=== PATIENT | female | born 1960 | race Caucasian/White ===

== ENCOUNTER → 2016-11-06 | Outpatient (CLI) | payer BC ==
--- NOTE | 2016-11-07 07:10 | MM ---
Reason for exam: follow-up at short interval from prior study. Last mammogram was performed 10 months ago. History: Patient is postmenopausal, has history of breast cancer at age 55, and has history of high-risk lesion on a previous biopsy at age 55. Family history of premenopausal breast cancer in maternal aunt at age 40 and breast cancer in maternal aunt at age 55. High risk MG pre op needle loc RT of the right breast, November 02, 2015. Malignant MG stereo VAD BX RT of the right breast, October 26, 2015. Physical Findings: Nurse did not find any significant physical abnormalities on exam. MG 3D Diag Mammo W/Cad AYAD Bilateral CC and MLO view(s) were taken. Prior study comparison: December 29, 2015, right breast MG diagnostic mammo RT w CAD. October 08, 2015, right breast MG 3d work up w/cad RT. October 04, 2015, bilateral MG screening mammo w CAD. August 25, 2014, bilateral MG screening mammo w CAD. March 19, 2013, bilateral digital screening mammo w/CAD. The breast tissue is heterogeneously dense. This may lower the sensitivity of mammography. Post surgical and post therapy changes in the right breast. These changes can be reassessed in 6 months. These results were verbally communicated with the patient and result sheet given to the patient on 11/06/16. ASSESSMENT: Probably benign, BI-RAD 3 RECOMMENDATION: Follow-up diagnostic mammogram of the right breast in 6 months.
== END | disposition home or self-care (01) ==
LOC: RADMAMWWP 13:38
PROVIDERS: ATTEND Radiology Diagnostic Radiology
DX: C50.911 Malignant neoplasm of unspecified site of right female breast (principal)
CPT/HCPCS: G0204; G0279

== ENCOUNTER → 2017-05-11 | Outpatient (CLI) | payer BC ==
--- NOTE | 2017-05-11 11:28 | MM ---
Reason for exam: follow-up at short interval from prior study. Last mammogram was performed 6 months ago. History: Patient is postmenopausal, has history of breast cancer at age 55, and has history of high-risk lesion on a previous biopsy at age 55. Family history of premenopausal breast cancer in maternal aunt at age 40 and breast cancer in maternal aunt at age 55. High risk MG pre op needle loc RT of the right breast, November 02, 2015. Malignant MG stereo VAD BX RT of the right breast, October 26, 2015. Physical Findings: Nurse did not find any significant physical abnormalities on exam. MG 3D Diag Mammo W/Cad RT CC and MLO view(s) were taken of the right breast. Prior study comparison: November 06, 2016, bilateral MG 3d diag mammo w/cad AYAD. December 29, 2015, right breast MG diagnostic mammo RT w CAD. The breast tissue is heterogeneously dense. This may lower the sensitivity of mammography. No suspicious abnormality. Post therapy changes in the right upper central breast. These results were verbally communicated with the patient and result sheet given to the patient on 05/11/17. ASSESSMENT: Benign, BI-RAD 2 RECOMMENDATION: Follow-up diagnostic mammogram of both breasts in 6 months. Back on schedule for October 2017.
== END | disposition home or self-care (01) ==
LOC: RADMAMWWP 10:21
PROVIDERS: ATTEND Radiology Diagnostic Radiology
DX: C50.911 Malignant neoplasm of unspecified site of right female breast (principal)
CPT/HCPCS: G0206; G0279

== ENCOUNTER → 2017-11-14 | Outpatient (CLI) | payer BC ==
--- NOTE | 2017-11-15 11:02 | MM ---
Reason for exam: follow-up at short interval from prior study. Last mammogram was performed 6 months ago. History: Patient is postmenopausal, has history of breast cancer at age 55, and has history of high-risk lesion on a previous biopsy at age 55. Family history of premenopausal breast cancer in maternal aunt at age 40 and breast cancer in maternal aunt at age 55. High risk MG pre op needle loc RT of the right breast, November 02, 2015. Malignant MG stereo VAD BX RT of the right breast, October 26, 2015. Radiation therapy of the right breast, 2015. Taking antineoplastic for 2 years beginning at age 55. Physical Findings: Nurse did not find any significant physical abnormalities on exam. MG 3D Diag Mammo W/Cad AYAD Bilateral CC and MLO view(s) were taken. Prior study comparison: May 11, 2017, right breast MG 3d diag mammo w/cad RT. November 06, 2016, bilateral MG 3d diag mammo w/cad AYAD. The breast tissue is heterogeneously dense. This may lower the sensitivity of mammography. Post surgical changes in the right breast. No significant new findings when compared with previous films. These results were verbally communicated with the patient and result sheet given to the patient on 11/14/17. ASSESSMENT: Benign, BI-RAD 2 RECOMMENDATION: Routine screening mammogram of both breasts in 1 year.
== END | disposition home or self-care (01) ==
LOC: RADMAMWWP 13:33
PROVIDERS: ATTEND Radiology Diagnostic Radiology
DX: C50.911 Malignant neoplasm of unspecified site of right female breast (principal)
CPT/HCPCS: 77066; G0279

== ENCOUNTER 2018-02-06 12:38 | Emergency (ER) | payer BC ==
[2018-02-06 12:50] VITALS: RESP 18; TEMP 97.8
--- NOTE | 2018-02-06 13:11 | ED ---
General Adult HPI - General Chief complaint: Extremity Problem,Nontraumatic Stated complaint: Toe Numbness Time Seen by Provider: 02/06/18 12:50 Source: patient, RN notes reviewed Mode of arrival: ambulatory Limitations: no limitations - History of Present Illness Initial comments: 57-year-old female presents to the emergency department for a chief complaint of third and fourth right toe numbness 2 days. Patient states it started yesterday and also extends to the bottom of the distal right foot. Patient denies any injuries. Patient denies any peripheral arterial diseases. No diabetes or diabetic neuropathy. Patient denies any pain in the calf. Patient does admit to sciatic pain for years. Patient denies pain at this times states it is on and off. Patient has no other complaints at this time including shortness of breath, chest pain, abdominal pain, nausea or vomiting, headache, or visual changes. - Related Data Home Medications Medication Instructions Recorded Confirmed Atorvastatin [Lipitor] 10 mg PO HS 11/01/15 11/02/15 Escitalopram Oxalate 10 mg PO HS 11/01/15 11/02/15 Esomeprazole Magnesium [NexIUM] 40 mg PO HS 11/01/15 11/02/15 Gabapentin [Neurontin] 300 mg PO [facility] 11/01/15 11/02/15 Gabapentin [Neurontin] 600 mg PO HS 11/01/15 11/02/15 Levothyroxine Sodium 75 mcg PO QAM 11/01/15 11/02/15 Metoprolol Tartrate 50 mg PO HS 11/01/15 11/02/15 clonazePAM [Clonazepam] 0.5 mg PO HS 11/01/15 11/02/15 Previous Rx's Medication Instructions Recorded predniSONE 50 mg PO DAILY #5 tablet 02/06/18 Allergies Allergy/AdvReac Type Severity Reaction Status Date / Time Iodinated Contrast- Oral and Allergy Dyspnea Verified 02/06/18 12:47 IV Dye [Iodinated Contrast Media - IV Dye] Penicillins Allergy Dyspnea Verified 02/06/18 12:47 Sulfa (Sulfonamide Allergy REDDNESS, Verified 02/06/18 12:47 Antibiotics) CHEEKS, HANDS Review of Systems ROS Statement: Those systems with pertinent positive or pertinent negative responses have been documented in the HPI. ROS Other: All systems not noted in ROS Statement are negative. Past Medical History Past Medical History: GERD/Reflux, Hyperlipidemia, Hypertension, Sleep Apnea/ CPAP/BIPAP, Thyroid Disorder History of Any Multi-Drug Resistant Organisms: None Reported Past Surgical History: Appendectomy, Hysterectomy Additional Past Surgical History / Comment(s): AYAD CATARACT SX Past Anesthesia/Blood Transfusion Reactions: No Reported Reaction Past Psychological History: Depression Smoking Status: Never smoker Past Alcohol Use History: Rare Past Drug Use History: None Reported - Past Family History Brother(s) Family Medical History: Cancer Additional Family Medical History / Comment(s): HODGKIN'S General Exam Limitations: no limitations General appearance: alert, in no apparent distress Head exam: Present: atraumatic, normocephalic, normal inspection Eye exam: Present: normal appearance, PERRL, EOMI. Absent: scleral icterus, conjunctival injection, nystagmus, periorbital swelling ENT exam: Present: normal exam, normal oropharynx, mucous membranes moist, TM's normal bilaterally, normal external ear exam Neck exam: Present: normal inspection. Absent: tenderness, meningismus, lymphadenopathy Respiratory exam: Present: normal lung sounds bilaterally. Absent: respiratory distress, wheezes, rales, rhonchi, stridor Cardiovascular Exam: Present: regular rate, normal rhythm, normal heart sounds. Absent: systolic murmur, diastolic murmur, rubs, gallop, clicks Extremities exam: Present: full ROM (Full range of motion of the right foot including the third and fourth digits.), normal capillary refill (Refill less than 2 seconds and PD and PT pulses strong with Doppler.), other (sensation intact to light touch in the R foot including 3rd and 4th digits.). Absent: tenderness (No tenderness in the right foot or third or fourth digits), pedal edema, joint swelling, calf tenderness (negative riaz sign) Neurological exam: Present: alert, oriented X3, CN II-XII intact, other ( Negative arm drift, strength 5 out of 5 in upper and lower extremities bilaterally). Absent: motor sensory deficit Course Vital Signs 02/06/18 12:47 Temperature 97.8 F Pulse Rate 72 Respiratory 18 Rate Blood Pressure 114/77 O2 Sat by Pulse 98 Oximetry Medical Decision Making - Medical Decision Making 57-year-old female presents to the emergency department for a chief complaint of numbness and tingling in the right third and fourth toes. Patient states this started yesterday. No injuries. Patient does have a history of sciatica. On exam sensation intact in the third and fourth digit of the right foot. Full range of motion. No tenderness. Strong Doppler pulses in the right lower extremity. Cap refill less than 2 seconds. No focal neuro deficits on exam. GCS 15. X-ray of the right foot shows no fractures or dislocations. Patient is likely experiencing a paresthesia of the third and fourth digit of the right foot possibly related to chronic sciatic pain. Patient will be given prednisone to decrease inflammation. Patient states she has Motrin at home that she can take 3 times per day. Patient is aware she must return to the emergency Department if she has worsening symptoms. Otherwise she will follow- up with primary care provider in one to 2 days. Disposition Clinical Impression: Paresthesia of right foot Disposition: HOME SELF-CARE Condition: Good Instructions: Paresthesia (ED) Additional Instructions: Please take steroid as directed. Please take Motrin 3 times per day. Please monitor for worsening symptoms and return if these occur. Otherwise follow-up with primary care in 1-2 days. Prescriptions: predniSONE 50 mg PO DAILY #5 tablet Is patient prescribed a controlled substance at d/c from ED?: No Referrals: Linda Townsend DO [Primary Care Provider] - 1-2 days Time of Disposition: 13:53
--- NOTE | 2018-02-06 13:41 | XR ---
Right foot HISTORY: Numbness and tingling in toes 3 views of the right foot Fourth digits are flexed which may limit sensitivity. Bone mineralization, joint spaces and alignment are maintained. No fracture or dislocation. There is a plantar calcaneal spur. Degenerative changes present in the midfoot. IMPRESSION: Nonspecific findings described above. Plantar calcaneal spur, osteoarthritis.
[2018-02-06 14:23] VITALS: BP 109/60; PULSE 67
== END 2018-02-06 14:10 | disposition home or self-care (01) ==
LOC: EC 12:38
DX: R20.2 Paresthesia of skin (principal); R20.0 Anesthesia of skin; M54.30 Sciatica, unspecified side; E78.5 Hyperlipidemia, unspecified; I10 Essential (primary) hypertension; K21.9 Gastro-esophageal reflux disease without esophagitis; E07.9 Disorder of thyroid, unspecified; G47.30 Sleep apnea, unspecified; F32.9 Major depressive disorder, single episode, unspecified; Z79.899 Other long term (current) drug therapy; Z88.0 Allergy status to penicillin; Z88.2 Allergy status to sulfonamides; Z91.041 Radiographic dye allergy status; Z99.89 Dependence on other enabling machines and devices
CPT/HCPCS: 99284

== ENCOUNTER → 2018-08-02 | Outpatient (CLI) | payer BC ==
--- NOTE | 2018-08-03 14:02 | MR ---
EXAMINATION TYPE: MR lumbar spine wo con DATE OF EXAM: 08/02/2018 COMPARISON: None HISTORY: LBP, RLE radic x 1 year, no trauma CONTRAST: 0 mL intravenous Gadavist. TECHNIQUE: Multiplanar, multisequence images of the lumbar spine were acquired. FINDINGS: L5-S1: There is narrowing of the disc height. Broad-based disc bulge is present without thecal sac co ntact. This may has some contact without displacement of the exiting S1 nerve roots. No spinal canal stenosis or neural foraminal stenosis is present. Small amount of posterior signal within the disc sp sherrell on T2-weighted sequences in the sagittal plane are present suggesting the possibility of small un derlying annular tear. L4-L5: Broad-based disc bulge is present. Facet hypertrophy and ligamentum flavum laxity are present. Mild anterior thecal sac contact from the disc bulge is present. More moderate posterior lateral the kelly sac compression from the ligamentum flavum laxity is present. No stenosis is present. Neural fora men are patent. L3-L4: Minimal disc bulge is present with anterior thecal sac contact. No flattening is evident. Liga mentum flavum laxity has some mild posterior lateral thecal sac compression on the right. No spinal c anal stenosis or neural foraminal stenosis is present. L2-L3: Degenerative disc changes present. Minimal disc bulge has anterior thecal sac contact without flattening. No stenosis is present. Mild facet hypertrophy is posterior lateral thecal sac compressio n, mostly on the right. Neural foramen are patent. L1-L2: No significant disc bulge or disc herniation. No spinal canal stenosis. No foraminal stenosi s. Neural foramen are patent.. T12-L1: No significant disc bulge or disc herniation. No spinal canal stenosis. No foraminal stenos is. Neural foramen are patent.. There may be peripelvic cysts present on the left kidney. IMPRESSION: 1. Degenerative disc changes L2-L3, L5-S1. 2. Disc bulging L5-S1 has contact with the exiting S1 nerve roots. No compression or displacement is identified. Correlate for any radicular symptoms. 3. Minimal annular tear at L4-5 S1 may be present. 4. Very mild disc bulging present L2-3 through L4-5 without significant thecal sac compression.
== END | disposition home or self-care (01) ==
LOC: RADMRIMAIN 14:42
PROVIDERS: ATTEND Family Medicine
DX: M51.17 Intervertebral disc disorders with radiculopathy, lumbosacral region (principal)
CPT/HCPCS: 72148

== ENCOUNTER 2018-08-04 20:01 | Emergency (ER) | payer BC ==
[2018-08-04 20:12] VITALS: RESP 18
[2018-08-04] MEDS ORDERED: diphenhydrAMINE 50 MG/ML 1 ML VIAL IVP STA (20:19)
[2018-08-04] MEDS ORDERED: ONDANSETRON 4 MG/2 ML VIAL IVP STA (20:19)
[2018-08-04] MEDS ORDERED: SODIUM CHLORIDE 0.9% 1,000 ML IV STA (20:19)
--- NOTE | 2018-08-04 20:21 | ED ---
Nausea/Vomiting/Diarrhea HPI - General Source: patient Mode of arrival: ambulatory Limitations: no limitations <Zuleika Shipman - Last Filed: 08/04/18 23:33> <Babs Estrada - Last Filed: 08/06/18 09:22> - General Chief complaint: Nausea/Vomiting/Diarrhea Stated complaint: Vomiting Time Seen by Provider: 08/04/18 20:15 - History of Present Illness Initial comments: 58-year-old female patient presents to the emergency department today for evaluation of nausea and vomiting. Patient states that vomiting started around Sunday morning. Patient states she is having some upper abdominal discomfort and muscle soreness from vomiting. States she's been unable to keep down any food or fluids. States that she felt feverish and chilled this morning. She denies any constipation or diarrhea with this. States she is passing gas. States she has had appendectomy but no other surgeries on her abdomen. Patient denies any recent rash, shortness breath, abdominal pain, back pain, numbness, tingling, dizziness, weakness, hematuria, dysuria, urinary urgency, urinary frequency, headache, visual changes, or any other complaints. (Zuleika Shipman) - Related Data Home Medications Medication Instructions Recorded Confirmed Atorvastatin [Lipitor] 10 mg PO HS 11/01/15 08/04/18 Escitalopram Oxalate 10 mg PO HS 11/01/15 08/04/18 Gabapentin [Neurontin] 150 mg PO [facility] 11/01/15 08/04/18 Gabapentin [Neurontin] 600 mg PO 11/01/15 08/04/18 Levothyroxine Sodium 75 mcg PO QA 11/01/15 08/04/18 Metoprolol Tartrate 50 mg PO HS 11/01/15 08/04/18 Exemestane [Aromasin] 25 mg PO HS 08/04/18 08/04/18 Omeprazole [PriLOSEC] 40 mg PO HS 08/04/18 08/04/18 Previous Rx's Medication Instructions Recorded Ondansetron [Zofran ODT] 4 mg PO Q8HR PRN #10 tab 08/04/18 Allergies Allergy/AdvReac Type Severity Reaction Status Date / Time Iodinated Contrast- Oral and Allergy Dyspnea Verified 08/04/18 23:15 IV Dye [Iodinated Contrast Media - IV Dye] Penicillins Allergy Dyspnea Verified 08/04/18 23:15 Sulfa (Sulfonamide Allergy REDDNESS, Verified 08/04/18 23:15 Antibiotics) CHEEKS, HANDS Review of Systems ROS Other: All systems not noted in ROS Statement are negative. <Zuleika Shipman - Last Filed: 08/04/18 23:33> ROS Other: All systems not noted in ROS Statement are negative. <Babs Estrada - Last Filed: 08/06/18 09:22> ROS Statement: Those systems with pertinent positive or pertinent negative responses have been documented in the HPI. Past Medical History Past Medical History: Cancer, GERD/Reflux, Hyperlipidemia, Hypertension, Sleep Apnea/CPAP/BIPAP, Thyroid Disorder Additional Past Medical History / Comment(s): right sided breast cancer History of Any Multi-Drug Resistant Organisms: None Reported Past Surgical History: Appendectomy, Hysterectomy Additional Past Surgical History / Comment(s): AYAD CATARACT SX, lympectomy and radiation. Past Anesthesia/Blood Transfusion Reactions: No Reported Reaction Past Psychological History: Depression Smoking Status: Never smoker Past Alcohol Use History: Rare Past Drug Use History: None Reported - Past Family History Brother(s) Family Medical History: Cancer Additional Family Medical History / Comment(s): HODGKIN'S <Zuleika Shipman - Last Filed: 08/04/18 23:33> General Exam Limitations: no limitations General appearance: alert, in no apparent distress, other (This is a well- developed, well-nourished adult female patient in no acute distress. Vital signs upon presentation are temperature 97.6F, pulse 78, respirations 18, blood pressure 168/97, pulse ox 95% on room air.) Eye exam: Present: normal appearance, PERRL, EOMI. Absent: scleral icterus, conjunctival injection, periorbital swelling ENT exam: Present: normal exam, normal oropharynx, mucous membranes moist Respiratory exam: Present: normal lung sounds bilaterally. Absent: respiratory distress, wheezes, rales, rhonchi, stridor Cardiovascular Exam: Present: regular rate, normal rhythm, normal heart sounds. Absent: systolic murmur, diastolic murmur, rubs, gallop, clicks GI/Abdominal exam: Present: soft, tenderness (Upper abdominal tenderness), normal bowel sounds. Absent: distended, guarding, rebound, rigid Neurological exam: Present: alert, oriented X3, CN II-XII intact Psychiatric exam: Present: normal affect, normal mood Skin exam: Present: warm, dry, intact, normal color. Absent: rash <Zuleika Shipman - Last Filed: 08/04/18 23:33> Vital Signs 08/04/18 08/04/18 20:08 23:59 Temperature 97.6 F 97.8 F Pulse Rate 78 79 Respiratory 18 18 Rate Blood Pressure 168/97 144/79 O2 Sat by Pulse 95 98 Oximetry Medical Decision Making - Lab Data Result diagrams: 08/04/18 20:48 08/04/18 20:48 - EKG Data -: EKG Interpreted by Me <Zuleika Shipman - Last Filed: 08/04/18 23:33> - Lab Data Result diagrams: 08/04/18 20:48 08/04/18 20:48 <Babs Estrada - Last Filed: 08/06/18 09:22> - Medical Decision Making 58-year-old female patient presents to the emergency department today for complaints of vomiting since 010Sunday morning. Physical examination is relatively unremarkable. Abdomen is soft and nontender. Labs reviewed and did reveal mild increased BUN. She was given IV fluids and Zofran here in the department. Upon reevaluation patient states she is feeling improved but is still complaining of headache. She was given medication for this. Given some camille susanna. She was able tolerate oral intake. States headache is improved after the camille susanna. She'll be discharged home with prescription for Zofran. He is instructed to follow-up the primary care physician for recheck in 1-2 days. Return parameters were discussed in detail. She verbalizes understanding and agrees with this plan. (Zuleika Shipman) I was available for consultation in the emergency department. The history and physical exam were done by the midlevel provider. I was consulted for this patient's care. I reviewed the case with the midlevel provider and based on their presentation of the patient, I agree with the assessment, medical decision making and plan of care as documented. (Babs Estrada) - Lab Data Lab Results 08/04/18 08/04/18 08/04/18 Range/Units 20:10 20:48 20:48 WBC 5.4 (3.8-10.6) k/uL RBC 4.33 (3.80-5.40) m/uL Hgb 12.8 (11.4-16.0) gm/dL Hct 37.2 (34.0-46.0) % MCV 86.0 (80.0-100.0) fL MCH 29.6 (25.0-35.0) pg MCHC 34.5 (31.0-37.0) g/dL RDW 12.8 (11.5-15.5) % Plt Count 214 (150-450) k/uL Neutrophils % 67 % Lymphocytes % 20 % Monocytes % 7 % Eosinophils % 2 % Basophils % 0 % Neutrophils # 3.7 (1.3-7.7) k/uL Lymphocytes # 1.1 (1.0-4.8) k/uL Monocytes # 0.4 (0-1.0) k/uL Eosinophils # 0.1 (0-0.7) k/uL Basophils # 0.0 (0-0.2) k/uL Sodium 139 (137-145) mmol/L Potassium 3.9 (3.5-5.1) mmol/L Chloride 102 (98-107) mmol/L Carbon Dioxide 28 (22-30) mmol/L Anion Gap 9 mmol/L BUN 19 H (7-17) mg/dL Creatinine 0.80 (0.52-1.04) mg/dL Est GFR (CKD-EPI)AfAm >90 (>60 ml/min/1.73 sqM) Est GFR (CKD-EPI)NonAf 81 (>60 ml/min/1.73 sqM) Glucose 140 H (74-99) mg/dL Calcium 9.6 (8.4-10.2) mg/dL Total Bilirubin 0.5 (0.2-1.3) mg/dL AST 28 (14-36) U/L ALT 41 (9-52) U/L Alkaline Phosphatase 69 (38-126) U/L Troponin I (0.000-0.034) ng/mL Total Protein 6.9 (6.3-8.2) g/dL Albumin 4.3 (3.5-5.0) g/dL Amylase 43 (30-110) U/L Lipase 120 (23-300) U/L Urine Color Yellow Urine Appearance Clear (Clear) Urine pH 6.0 (5.0-8.0) Ur Specific Whipple 1.028 (1.001-1.035) Urine Protein 1+ H (Negative) Urine Glucose (UA) Negative (Negative) Urine Ketones 1+ H (Negative) Urine Blood Negative (Negative) Urine Nitrite Negative (Negative) Urine Bilirubin Negative (Negative) Urine Urobilinogen <2.0 (<2.0) mg/dL Ur Leukocyte Esterase Large H (Negative) Urine RBC 2 (0-5) /hpf Urine WBC 14 H (0-5) /hpf Ur Squamous Epith Cells 3 (0-4) /hpf Urine Mucus Moderate H (None) /hpf 08/04/18 Range/Units 20:48 WBC (3.8-10.6) k/uL RBC (3.80-5.40) m/uL Hgb (11.4-16.0) gm/dL Hct (34.0-46.0) % MCV (80.0-100.0) fL MCH (25.0-35.0) pg MCHC (31.0-37.0) g/dL RDW (11.5-15.5) % Plt Count (150-450) k/uL Neutrophils % % Lymphocytes % % Monocytes % % Eosinophils % % Basophils % % Neutrophils # (1.3-7.7) k/uL Lymphocytes # (1.0-4.8) k/uL Monocytes # (0-1.0) k/uL Eosinophils # (0-0.7) k/uL Basophils # (0-0.2) k/uL Sodium (137-145) mmol/L Potassium (3.5-5.1) mmol/L Chloride (98-107) mmol/L Carbon Dioxide (22-30) mmol/L Anion Gap mmol/L BUN (7-17) mg/dL Creatinine (0.52-1.04) mg/dL Est GFR (CKD-EPI)AfAm (>60 ml/min/1.73 sqM) Est GFR (CKD-EPI)NonAf (>60 ml/min/1.73 sqM) Glucose (74-99) mg/dL Calcium (8.4-10.2) mg/dL Total Bilirubin (0.2-1.3) mg/dL AST (14-36) U/L ALT (9-52) U/L Alkaline Phosphatase (38-126) U/L Troponin I <0.012 (0.000-0.034) ng/mL Total Protein (6.3-8.2) g/dL Albumin (3.5-5.0) g/dL Amylase (30-110) U/L Lipase (23-300) U/L Urine Color Urine Appearance (Clear) Urine pH (5.0-8.0) Ur Specific Whipple (1.001-1.035) Urine Protein (Negative) Urine Glucose (UA) (Negative) Urine Ketones (Negative) Urine Blood (Negative) Urine Nitrite (Negative) Urine Bilirubin (Negative) Urine Urobilinogen (<2.0) mg/dL Ur Leukocyte Esterase (Negative) Urine RBC (0-5) /hpf Urine WBC (0-5) /hpf Ur Squamous Epith Cells (0-4) /hpf Urine Mucus (None) /hpf - EKG Data EKG Comments: EKG obtained at 2039 shows normal sinus rhythm with a ventricular rate of 66, SD interval 152, QRS duration 72, QT 400, QTC 419. No evidence of ST elevation or depression. (Zuleika Shipman) Disposition Is patient prescribed a controlled substance at d/c from ED?: No Time of Disposition: 23:28 <Zuleika Shipman - Last Filed: 08/04/18 23:33> <Babs Estrada - Last Filed: 08/06/18 09:22> Clinical Impression: Gastroenteritis Disposition: HOME SELF-CARE Condition: Good Instructions: Gastroenteritis (ED), Acute Nausea and Vomiting (ED) Additional Instructions: Take medication as directed. Start with clear liquid diet and advance as tolerated. Follow-up with the primary care physician for recheck as soon as possible. Return immediately for any new, worsening, or concerning symptoms. Prescriptions: Ondansetron [Zofran ODT] 4 mg PO Q8HR PRN #10 tab PRN Reason: Nausea Referrals: Linda Townsend DO [Primary Care Provider] - 1-2 days
[2018-08-04 21:24] LABS: Basophils % (A) 0 %; Eosinophils # (A) 0.1 k/uL (0-0.7); Eosinophils % (A) 2 %; HCT 37.2 % (34.0-46.0); HGB 12.8 gm/dL (11.4-16.0); Lymphocytes # (A) 1.1 k/uL (1.0-4.8); Lymphocytes % (A) 20 %; MCH 29.6 pg (25.0-35.0); MCHC 34.5 g/dL (31.0-37.0); Mean Platelet Volume 6.8; Monocytes # (A) 0.4 k/uL (0-1.0); Monocytes % (A) 7 %; Neutrophils # (A) 3.7 k/uL (1.3-7.7); Neutrophils % (A) 67 %; Platelet Count 214 k/uL (150-450); RBC 4.33 m/uL (3.80-5.40); RDW 12.8 % (11.5-15.5); WBC 5.4 k/uL (3.8-10.6)
[2018-08-04 21:28] LABS: Albumin 4.3 g/dL (3.5-5.0); Amylase 43 U/L (30-110); Anion Gap 9 mmol/L; Blood Urea Nitrogen 19 mg/dL (7-17); Carbon Dioxide 28 mmol/L (22-30); Chloride 102 mmol/L (98-107); Glucose 140 mg/dL (74-99); Potassium 3.9 mmol/L (3.5-5.1); Sodium 139 mmol/L (137-145); Total Protein 6.9 g/dL (6.3-8.2)
[2018-08-04 21:29] LABS: ALT 41 U/L (9-52); AST 28 U/L (14-36); Alkaline Phosphatase 69 U/L (38-126); Calcium 9.6 mg/dL (8.4-10.2); Lipase 120 U/L (23-300); Total Bilirubin 0.5 mg/dL (0.2-1.3)
[2018-08-04 22:03] LABS: Appearance,Urine Clear (Clear); Bilirubin,Urine Negative (Negative); Blood,Urine Negative (Negative); Color,Urine Yellow; Glucose,Urine (UA) Negative (Negative); Ketones,Urine 1+ (Negative); Leukocyte Esterase,Urine Large (Negative); Mucus,Urine Moderate /hpf; Nitrite,Urine Negative (Negative); Protein,Urine 1+ (Negative); RBC,Urine 2 /hpf (0-5); Specific Gravity,Urine 1.028 (1.001-1.035); Squamous Epithelial Cell,Urine 3 /hpf (0-4); Urobilinogen,Urine <2.0 mg/dL (<2.0); WBC,Urine 14 /hpf (0-5)
[2018-08-04] MEDS ORDERED: KETOROLAC 30 MG/ML 1 ML VIAL IVP STA (22:18)
[2018-08-04] MEDS ORDERED: ONDANSETRON 4 MG ODT STARTER PACK 2 TAB BTL PO STA (23:28)
[2018-08-05 00:01] VITALS: BP 144/79; PULSE 79; TEMP 97.8
== END 2018-08-05 | disposition home or self-care (01) ==
LOC: EC 20:01
DX: K52.9 Noninfective gastroenteritis and colitis, unspecified (principal); R79.89 Other specified abnormal findings of blood chemistry; R51 Headache; K21.9 Gastro-esophageal reflux disease without esophagitis; E78.5 Hyperlipidemia, unspecified; I10 Essential (primary) hypertension; G47.30 Sleep apnea, unspecified; Z99.89 Dependence on other enabling machines and devices; E07.9 Disorder of thyroid, unspecified; F32.9 Major depressive disorder, single episode, unspecified; Z85.3 Personal history of malignant neoplasm of breast; Z79.899 Other long term (current) drug therapy; Z88.0 Allergy status to penicillin; Z88.2 Allergy status to sulfonamides; Z91.041 Radiographic dye allergy status; Z90.49 Acquired absence of other specified parts of digestive tract
CPT/HCPCS: 36415; 93005; 80053; 82150; 83690; 84484; 85025; 81001; 99284; 96374; 96375 ×2; 96361 ×2; J1200; J2405; J1885; S0119

== ENCOUNTER → 2018-08-15 | Outpatient (CLI) | payer BC ==
[2018-08-15 14:06] VITALS: BP 96/66; PULSE 80; RESP 16; TEMP 96.5; BMI 24.6
--- NOTE | 2018-08-15 14:33 | P.GSHP ---
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 She subsequently underwent radiation therapy. She is on an aromatase inhibitor at this time. She follows with Dr. Sampson. The patient at this time has no complaints of any lumps or masses in her breast. She has no complaints of any nipple discharge or skin changes. Her most recent mammogram was in November 2017 this was bilateral and did not show any lesions of concern. Family history: brother: Hodgkins brother: kidney cancer maternal aunt: breast 3 uncles maternal: lung cancer (smokers) maternal aunt: lung cancer (smokers) maternal aunt: colon cancer Hormonal History: menarche: 12 : 3, 3 children, first at 21breast fed : yes menopause: hysterectomy 47, left ovaries BCP: none hormones: none Past surgical history: 1. Right breast lumpectomy 2. Hysterectomy 3. Appendectomy 4. Cataract surgery Past medical history: 1. hypothyroid 2. sciatica Social History: smoke: negative alcohol: negaive drugs: negative - Constitutional Constitutional: Denies chills, Denies fever - EENT Eyes: denies blurred vision, denies pain Ears: deny: decreased hearing, tinnitus Ears, nose, mouth and throat: Reports headache, Denies sore throat - Breasts Breasts: bilateral: as per HPI - Cardiovascular Cardiovascular: Denies chest pain, Denies shortness of breath - Respiratory Respiratory: Denies cough, Denies 7 - Gastrointestinal Gastrointestinal: Denies abdominal pain, Denies diarrhea, Denies nausea, Denies vomiting - Genitourinary (Female) Genitourinary: Denies dysuria, Denies hematuria - Menstruation Menstruation: Reports post hysterectomy - Musculoskeletal Comment: arthritis Musculoskeletal: Denies myalgias - Integumentary Integumentary: Denies pruritus, Denies rash - Neurological Neurological: Denies numbness, Denies weakness - Psychiatric Psychiatric: Reports depression, Denies anxiety - Endocrine Comment: hypothyroid - Hematologic/Lymphatic Comment: none - Allergic/Immunologic Allergic/Immunologic: Reports seasonal allergies Past Medical History Past Medical History: Cancer, GERD/Reflux, Hyperlipidemia, Sleep Apnea/CPAP/ BIPAP, Thyroid Disorder Additional Past Medical History / Comment(s): right sided breast cancer History of Any Multi-Drug Resistant Organisms: None Reported Past Surgical History: Appendectomy, Hysterectomy Additional Past Surgical History / Comment(s): AYAD CATARACT SX, lympectomy and radiation. Past Anesthesia/Blood Transfusion Reactions: No Reported Reaction Past Psychological History: Depression Smoking Status: Never smoker Past Alcohol Use History: Rare Past Drug Use History: None Reported - Past Family History Brother(s) Family Medical History: Cancer Additional Family Medical History / Comment(s): HODGKIN'S Medications and Allergies Home Medications Medication Instructions Recorded Confirmed Type Atorvastatin [Lipitor] 10 mg PO HS 11/01/15 08/15/18 History Escitalopram Oxalate 10 mg PO HS 11/01/15 08/15/18 History Gabapentin [Neurontin] 150 mg PO [facility] 11/01/15 08/15/18 History Gabapentin [Neurontin] 600 mg PO HS 11/01/15 08/15/18 History Levothyroxine Sodium 75 mcg PO QA 11/01/15 08/15/18 History Metoprolol Tartrate 50 mg PO HS 11/01/15 08/15/18 History Exemestane [Aromasin] 25 mg PO HS 08/04/18 08/15/18 History Omeprazole [PriLOSEC] 40 mg PO HS 08/04/18 08/15/18 History Allergies Allergy/AdvReac Type Severity Reaction Status Date / Time Iodinated Contrast- Oral and Allergy Dyspnea Verified 08/15/18 13:57 IV Dye [Iodinated Contrast Media - IV Dye] Penicillins Allergy Dyspnea Verified 08/15/18 13:57 Sulfa (Sulfonamide Allergy REDDNESS, Verified 08/15/18 13:57 Antibiotics) CHEEKS, HANDS Surgical - Exam Vital Signs Temp Pulse Resp BP Pulse Ox 96.5 F L 80 16 96/66 95 08/15/18 13:59 08/15/18 13:59 08/15/18 13:59 08/15/18 13:59 08/15/18 13:59 BMI 24.6 - General well developed, well nourished, no distress - Eyes normal ocular movement, no icteric - ENT no hearing loss, no congestion - Neck no masses, trachea midline - Respiratory normal respiratory effort, clear to auscultation - Cardiovascular Rhythm: regular Heart Sounds: normal: S1, S2 - Abdomen Abdomen: soft, non tender, no guarding, no rigid, no rebound - Integumentary normal turgor - Neurologic no disoriented, no combative - Musculoskeletal normal gait, normal posture - Psychiatric oriented to time, oriented to person, oriented to place, speech is normal, memory intact Breast examination: Right breast: Well-healed scar from prior lumpectomy multiple positional exam no dominant masses or nodules of concern Right axilla: No adenopathy of concern Left breast: Multi-positional exam no dominant masses or nodules of concern Left axilla: No adenopathy of concern Results Mammogram report October 2017 reviewed Assessment and Plan Assessment: Impression: 1. Prior history of right breast ductal carcinoma in situ no evidence of recurrent disease 2. Fibrocystic breast changes 3. History of hypothyroidism 4. History of sciatica 5. History of depression 6. GERD After discussion with the patient regarding the fact that she'll have repeat mammogram and Debi of this year with follow-up at that time. We will continue to follow her on a yearly basis. She has any questions or concerns we'll see her sooner. Plan: 1. Bilateral mammogram October 2018 with physician exam to follow 2. Medical management of medical conditions CC: Dr. Linda Townsend
== END | disposition home or self-care (01) ==
LOC: WWCWWP 13:55
PROVIDERS: ATTEND Surgery
DX: Z53.9 Procedure and treatment not carried out, unspecified reason (principal)

== ENCOUNTER → 2018-12-02 | Outpatient (CLI) | payer BC ==
--- NOTE | 2018-12-02 08:07 | MM ---
Reason for exam: additional evaluation requested from prior study. Last mammogram was performed 1 year and 1 month ago. History: Patient is postmenopausal, has history of breast cancer at age 55, and has history of high-risk lesion on a previous biopsy at age 55. Family history of premenopausal breast cancer in maternal aunt at age 40 and breast cancer in maternal aunt at age 55. High risk MG pre op needle loc RT of the right breast, November 02, 2015. Malignant MG stereo VAD BX RT of the right breast, October 26, 2015. Radiation therapy of the right breast, 2015. Taking antineoplastic for 2 years beginning at age 55. Physical Findings: Nurse did not find any significant physical abnormalities on exam. MG 3D Diag Mammo W/Cad AYAD Bilateral CC and MLO view(s) were taken. Prior study comparison: November 14, 2017, bilateral MG 3d diag mammo w/cad AYAD. May 11, 2017, right breast MG 3d diag mammo w/cad RT. The breast tissue is heterogeneously dense. This may lower the sensitivity of mammography. Stable post lumpectomy changes right breast. No significant new findings when compared with previous films. These results were verbally communicated with the patient and result sheet given to the patient on 12/02/18. ASSESSMENT: Benign, BI-RAD 2 RECOMMENDATION: Follow-up diagnostic mammogram of both breasts in 1 year.
== END | disposition home or self-care (01) ==
LOC: RADMAMWWP 06:57
PROVIDERS: ATTEND Surgery
DX: Z08 Encounter for follow-up examination after completed treatment for malignant neoplasm (principal); Z85.3 Personal history of malignant neoplasm of breast
CPT/HCPCS: 77062; 77066

== ENCOUNTER → 2019-04-11 | Outpatient (CLI) | payer BC ==
--- NOTE | 2019-04-11 09:41 | US ---
EXAMINATION TYPE: US venous doppler duplex LE LT DATE OF EXAM: 04/11/2019 9:24 AM COMPARISON: NONE CLINICAL HISTORY: M79.662 pain in limb, R22.42 swelling. Left calf pain, edema left ankle SIDE PERFORMED: left TECHNIQUE: The lower extremity deep venous system is examined utilizing real time linear array sonog jaylen with graded compression, doppler sonography and color-flow sonography. VESSELS IMAGED: External Iliac Vein (EIV) Common Femoral Vein Deep Femoral Vein Greater Saphenous Vein * Femoral Vein Popliteal Vein Small Saphenous Vein * Proximal Calf Veins (* superficial vessels) Grayscale, color doppler, spectral doppler imaging performed of the deep veins of the left lower extr emity. There is normal flow, compressibility, vascular waveforms. Left Leg: No evidence of DVT. complex anechoic area extending from popliteal fossa into left upper c half-way = 8.2 x 0.9 x 4.1cm IMPRESSION: 1. No sonographic evidence of deep venous thrombosis within the left lower extremity. 2. Mildly complex elongated popliteal fossa cyst measuring 8.2 cm is incidentally seen.
== END | disposition home or self-care (01) ==
LOC: RADUSWWP 08:58
PROVIDERS: ATTEND Family Medicine
DX: M79.662 Pain in left lower leg (principal)

== ENCOUNTER → 2021-02-28 | Outpatient (CLI) | payer BC ==
--- NOTE | 2021-02-28 13:43 | MM ---
Reason for exam: additional evaluation requested from prior study. Last mammogram was performed 1 year ago. History: Patient is postmenopausal, has history of breast cancer at age 55, and has history of high-risk lesion on a previous biopsy at age 55. Family history of premenopausal breast cancer in maternal aunt at age 40 and breast cancer in maternal aunt at age 55. High risk MG pre op needle loc RT of the right breast, November 02, 2015. Malignant MG stereo VAD BX RT of the right breast, October 26, 2015. Lumpectomy of the right breast, 2015. Radiation therapy of the right breast, 2016. Taking antineoplastic for 4 years beginning at age 55. Physical Findings: Nurse did not find any significant physical abnormalities on exam. MG 3D Diag Mammo W/Cad AYAD Bilateral CC and MLO view(s) were taken. Prior study comparison: February 27, 2020, bilateral MG 3d diag mammo w/cad AYAD. December 02, 2018, bilateral MG 3d diag mammo w/cad AYAD. November 14, 2017, bilateral MG 3d diag mammo w/cad AYAD. The breast tissue is heterogeneously dense. This may lower the sensitivity of mammography. Post surgical and post therapy change right breast. No significant new findings when compared with previous films. These results were verbally communicated with the patient and result sheet given to the patient on 02/28/21. ASSESSMENT: Benign, BI-RAD 2 RECOMMENDATION: Follow-up diagnostic mammogram of both breasts in 1 year.
== END | disposition home or self-care (01) ==
LOC: RADMAMWWP 12:52
PROVIDERS: ATTEND Radiology Radiation Oncology
DX: R92.2 Inconclusive mammogram (principal); Z78.0 Asymptomatic menopausal state; Z80.3 Family history of malignant neoplasm of breast
CPT/HCPCS: 77062; 77066

== ENCOUNTER → 2022-03-02 | Outpatient (CLI) | payer BC ==
--- NOTE | 2022-03-02 14:19 | MM ---
Reason for Exam: Hx of breast cancer, conservation therapy. Last screening mammogram was performed 12 month(s) ago. Patient History: Menarche at age 12. First Full-Term at age 21. Hysterectomy at age 46. Postmenopausal. Breast cancer, right, age 55. 2016, Lumpectomy on the Right side. 11/02/2015, High risk Core Biopsy on the right side. 10/26/2015, Malignant Core Biopsy on the right side. 2016, Radiation Therapy on the right side. Maternal aunt had breast cancer, age 40. Maternal aunt had breast cancer, age 55. Prior Study Comparison: 05/27/1996 Screening Mammogram, Unknown. 12/29/2015 Right Diagnostic Mammogram, [facility]. 11/06/2016 Bilateral Diagnostic Mammogram, [facility]. 11/14/2017 Bilateral Diagnostic Mammogram, [facility]. 12/02/2018 Bilateral Diagnostic Mammogram, [facility]. 02/27/2020 Bilateral Diagnostic Mammogram, [facility]. 02/28/2021 Bilateral Diagnostic Mammogram, [facility]. Tissue Density: The breast tissue is heterogeneously dense. This may lower the sensitivity of mammography. Findings: Analyzed By CAD. Postsurgical and posttreatment changes right breast. The surgical scar and distortion posteriorly superiorly right breast is unchanged. No significant change from prior exams. Overall Assessment: Benign, BI-RAD 2 Management: Screening Mammogram of both breasts in 1 year. 1. Patient should continue monthly self breast exams. 2. A clinical breast exam by your physician is recommended on an annual basis. 3. This exam should not preclude additional follow-up of suspicious palpable abnormalities. Results were given to the patient verbally at the time of exam. Electronically signed and approved by: Chato Taylor M.D. Radiologist
== END | disposition home or self-care (01) ==
LOC: RADMAMWWP 12:59
PROVIDERS: ATTEND Radiology Diagnostic Radiology
DX: R92.8 Other abnormal and inconclusive findings on diagnostic imaging of breast (principal); Z80.3 Family history of malignant neoplasm of breast
CPT/HCPCS: 77062; 77066

== ENCOUNTER → 2023-03-05 | Outpatient (CLI) | payer BC ==
--- NOTE | 2023-03-05 14:41 | MM ---
Reason for Exam: Screening (asymptomatic). Last screening mammogram was performed 12 month(s) ago. Patient History: Menarche at age 12. First Full-Term at age 21. Hysterectomy at age 46. Postmenopausal. Breast cancer, right, age 55. 2016, Lumpectomy on the Right side. 11/02/2015, High risk Core Biopsy on the right side. 10/26/2015, Malignant Core Biopsy on the right side. 2016, Radiation Therapy on the right side. Maternal aunt had breast cancer, age 40. Maternal aunt had breast cancer, age 55. Prior Study Comparison: 02/27/2020 Bilateral Diagnostic Mammogram, [facility]. 02/28/2021 Bilateral Diagnostic Mammogram, [facility]. 03/02/2022 Bilateral MG 3D diag mammo w/cad AYAD, [facility]. Tissue Density: There are scattered fibroglandular densities. Findings: Analyzed By CAD. No new suspicious masses, calcifications or distortions. Overall Assessment: Benign, BI-RAD 2 Management: Screening Mammogram of the left breast in 1 year. Results were given to the patient verbally at the time of exam. Patient should continue monthly self-breast exams. A clinical breast exam by your physician is recommended on an annual basis. This exam should not preclude additional follow-up of suspicious palpable abnormalities. Note on Nela scores and lifetime risk: 1. A Nela score greater than 3% is considered moderate risk. If this is the case, consider specialist referral to assess eligibility for a risk reducing agent. 2. If overall lifetime risk for the development of breast cancer is 20% or higher, the patient may qualify for future screening with alternating mammogram and breast MRI. Electronically signed and approved by: Justice Orellana DO
--- NOTE | 2023-03-05 14:54 | MM ---
Reason for Exam: Hx of breast cancer, conservation therapy. Last screening mammogram was performed 12 month(s) ago. Patient History: Menarche at age 12. First Full-Term at age 21. Hysterectomy at age 46. Postmenopausal. Breast cancer, right, age 55. 2016, Lumpectomy on the Right side. 11/02/2015, High risk Core Biopsy on the right side. 10/26/2015, Malignant Core Biopsy on the right side. 2016, Radiation Therapy on the right side. Maternal aunt had breast cancer, age 40. Maternal aunt had breast cancer, age 55. Tissue Density: The breast tissue is heterogeneously dense. This may lower the sensitivity of mammography. Findings: Analyzed By CAD. No new suspicious masses, calcifications or distortions. Overall Assessment: Benign, BI-RAD 2 Management: Screening Mammogram of both breasts in 1 year. Results were given to the patient verbally at the time of exam. Patient should continue monthly self-breast exams. A clinical breast exam by your physician is recommended on an annual basis. This exam should not preclude additional follow-up of suspicious palpable abnormalities. Note on Nela scores and lifetime risk: 1. A Nela score greater than 3% is considered moderate risk. If this is the case, consider specialist referral to assess eligibility for a risk reducing agent. 2. If overall lifetime risk for the development of breast cancer is 20% or higher, the patient may qualify for future screening with alternating mammogram and breast MRI. Electronically signed and approved by: Justice Orellana DO
== END | disposition home or self-care (01) ==
LOC: RADMAMWWP 12:58
PROVIDERS: ATTEND Radiology Radiation Oncology
DX: D05.11 Intraductal carcinoma in situ of right breast (principal); Z80.3 Family history of malignant neoplasm of breast; Z78.0 Asymptomatic menopausal state
CPT/HCPCS: 77062; 77066

== ENCOUNTER 2023-10-02 10:10 | Day surgery (SDC) | payer MEDICARE, BC ==
[2023-10-01 09:43] VITALS: BMI 26.6
[2023-10-02] MEDS: LIDOCAINE 1% (10MG/ML) FOR IV START INTRADERMA PRN (11:10)
[2023-10-02] MEDS: LACTATED RINGERS 1,000 ML IV SCH (11:10)
[2023-10-02 11:19] LABS: Glucose,Whole Blood 99 mg/dL (70-110)
[2023-10-02 11:33] VITALS: RESP 16; TEMP 98.3
[2023-10-02] MEDS ORDERED: fentaNYL (PF) 50 MCG/ML 2 ML AMP ONE (11:59)
[2023-10-02] MEDS ORDERED: MIDAZOLAM 2 MG/2 ML VIAL ONE (11:59)
[2023-10-02] MEDS ORDERED: PROPOFOL 10 MG/ML 20 ML VIAL IV ONE (11:59)
--- NOTE | 2023-10-02 12:16 | P.PCN ---
Date of Procedure: 10/02/23 Procedure(s) Performed: BRIEF HISTORY: Patient is a 63-year-old pleasant white female scheduled for an elective colonoscopy as a part of evaluation of chronic intermittent diarrhea for the last 14 years duration. PROCEDURE PERFORMED: Colonoscopy with biopsy. PREOPERATIVE DIAGNOSIS: Chronic intermittent diarrhea. IV sedation per Anesthesia. PROCEDURE: After informed consent was obtained, the patient, was brought into the endoscopy unit. IV sedation was administered by Anesthesia under continuous monitoring. Digital rectal examination was normal. Initially the Olympus CF-160 flexible video colonoscope was then inserted in the rectum, gradually advanced into the cecum without any difficulty. Careful examination was performed as the scope was gradually being withdrawn. Ileocecal valve and the appendiceal orifice were visualized and appeared normal. Prep was excellent. Terminal ileum was in tubated and 20 cm visualized and appeared normal. Mucosa of the cecum, ascending colon, transverse colon, descending colon, sigmoid colon, and rectum appeared normal. Random biopsies were done from ascending and descending colon to rule out microscopicm=/collagenous colitis. scattered sigmoid diverticulosis.. Retroflexion was performed in the rectum and no lesions were seen. The patient tolerated the procedure well. IMPRESSION: Normal-appearing colon from rectum to cecum no evidence of colorectal neoplasia. Scattered sigmoid diverticulosis. RECOMMENDATIONS: Findings of this examination were discussed with the patient as well as a family. She was advised to follow with the biopsy results. Continue with probiotics as needed. Use [id number] Imodium for chronic intermittent diarrhea. Recommend repeat screening colonoscopy in 10 years..
[2023-10-02 12:44] VITALS: BP 100/66; PULSE 79
== END 2023-10-02 13:03 | disposition home or self-care (01) ==
LOC: ORWHC2ENDO 10:10
PROVIDERS: ATTEND Internal Medicine Gastroenterology
DX: K57.30 Diverticulosis of large intestine without perforation or abscess without bleeding (principal); G47.33 Obstructive sleep apnea (adult) (pediatric); E03.9 Hypothyroidism, unspecified; F32.A Depression, unspecified; K21.9 Gastro-esophageal reflux disease without esophagitis; F17.200 Nicotine dependence, unspecified, uncomplicated; Z88.0 Allergy status to penicillin; Z88.2 Allergy status to sulfonamides; Z91.041 Radiographic dye allergy status; Z79.890 Hormone replacement therapy; Z79.899 Other long term (current) drug therapy
CPT/HCPCS: 88305; 45380; J2250; J3010; J2704; 45378

== ENCOUNTER → 2024-04-14 | Outpatient (CLI) | payer MEDICARE, BC ==
--- NOTE | 2024-04-14 14:59 | MM ---
Reason for Exam: Follow-up at short interval from prior study. Last mammogram was performed 1 year(s) and 1 month(s) ago. Patient History: Menarche at age 12. First Full-Term at age 21. Hysterectomy at age 46. Postmenopausal. Breast cancer, right, age 55. Previous chest radiation therapy at age 55. 2016, Lumpectomy on the Right side. 11/02/2015, High risk Core Biopsy on the right side. 10/26/2015, Malignant Core Biopsy on the right side. 2016, Radiation Therapy on the right side. Maternal aunt had breast cancer, age 40. Maternal aunt had breast cancer, age 55. Prior Study Comparison: 12/02/2018 Bilateral Diagnostic Mammogram, [facility]. 02/27/2020 Bilateral Diagnostic Mammogram, [facility]. 02/28/2021 Bilateral Diagnostic Mammogram, [facility]. 03/02/2022 Bilateral MG 3D diag mammo w/cad AYAD, [facility]. 03/05/2023 Bilateral MG 3D diag mammo w/cad AYAD, [facility]. 03/05/2023 Bilateral MG 3D screening mammo w/cad, [facility]. Tissue Density: The breasts are heterogeneously dense, which may obscure small masses. Findings: Analyzed By CAD. The pattern appears stable. Post lumpectomy changes are right breast. Scattered stable appearing calcifications are present bilaterally. No suspicious groups of microcalcifications, spiculated or lobular masses, architectural distortion or other secondary signs of malignancy are mammographically apparent. Overall Assessment: Benign, BI-RAD 2 Management: Screening Mammogram of both breasts in 1 year. A negative mammogram report should not preclude additional follow up of suspicious palpable abnormalities. Patient should continue monthly self breast exam. A clinical breast exam by your physician is recommended on an annual basis and results should be correlated with mammographic findings. Note on Nela scores and lifetime risk: 1. A Nela score greater than 3% is considered moderate risk. If this is the case, consider specialist referral to assess eligibility for a risk reducing agent. 2. If overall lifetime risk for the development of breast cancer is 20% or higher, the patient may qualify for future screening with alternating mammogram and breast MRI. [facility], , 04/14/2024 2:56 PM. Electronically signed and approved by: Malik Gee D.O. Radiologis
== END | disposition home or self-care (01) ==
LOC: RADMAMWWP 14:35
PROVIDERS: ATTEND Radiology Radiation Oncology
DX: Z85.3 Personal history of malignant neoplasm of breast
CPT/HCPCS: 77062; 77066